=== PATIENT | male | born 1965 | race Caucasian/White ===

== ENCOUNTER 2018-11-12 09:46 | Emergency (ER) | payer OTHER ==
[~2018-11-12] VITALS: Ht 177.8 cm; Wt 120.2 kg
[2018-11-12] MEDS ORDERED: JENTADUETO 2.51 EAC2 (11:15)
[2018-11-12] MEDS ORDERED: AVALIDE 300-121 EACH (11:15)
== END 2018-11-12 14:33 | disposition home or self-care (01) ==
LOC: ER 09:46
DX: S30.0XXA Contusion of lower back and pelvis, initial encounter (principal); S80.02XA Contusion of left knee, initial encounter; M54.5 Low back pain; M25.562 Pain in left knee; W18.39XA Other fall on same level, initial encounter; Y93.89 Activity, other specified; Y92.098 Other place in other non-institutional residence as the place of occurrence of the external cause; Y99.8 Other external cause status